=== PATIENT | male | born 1990 | race Caucasian/White ===

== ENCOUNTER → 2016-08-13 | Outpatient (CLI) | payer BC ==
[2016-08-13 08:25] LABS: Basophils # (A) 0.1 k/uL (0-0.2); Basophils % (A) 1 %; CH 31.6; CHCM 33.7; Eosinophils # (A) 0.4 k/uL (0-0.7); Eosinophils % (A) 6 %; HCT 45.9 % (39.0-53.0); HDW 2.61; HGB 14.9 gm/dL (13.0-17.5); Luc # (Auto) 0.12; Luc % (Auto) 2; Lymphocytes # (A) 1.8 k/uL (1.0-4.8); Lymphocytes % (A) 25 %; MCH 30.6 pg (25.0-35.0); MCHC 32.5 g/dL (31.0-37.0); MCV 94.4 fL (80.0-100.0); Mean Platelet Volume 6.6; Monocytes # (A) 0.3 k/uL (0-1.0); Monocytes % (A) 4 %; Neutrophils # (A) 4.7 k/uL (1.3-7.7); Neutrophils % (A) 64 %; RBC 4.86 m/uL (4.30-5.90); WBC 7.4 k/uL (3.8-10.6); WBC (Perox) 7.62
--- NOTE | 2016-08-13 08:39 | US ---
EXAMINATION TYPE: US liver DATE OF EXAM: 08/13/2016 7:42 AM COMPARISON: NONE CLINICAL HISTORY: 26-year-old male B18.2 HEP C. TECHNIQUE: Multiple sonographic images of the right upper quadrant are obtained. FINDINGS: Liver Length: 14.7 cm Gallbladder Wall: 0.3 cm CBD: 0.4 cm Right Kidney: 11.5 x 4.1 x 4.6 cm Pancreas: A small portion of the pancreatic tail is not well seen. Remainder is grossly unremarkable . Liver: There is homogeneous echotexture without focal lesions seen. Gallbladder: No abnormal gallbladder distention, wall thickening, pericholecystic fluid, or shadowin g calculi. Evidence for sonographic Travis's sign: No CBD: Within normal limits Right Kidney: No hydronephrosis. IMPRESSION: Overall homogeneous appearance to the liver. No sonographic evidence for hepatoma.
[2016-08-13 08:54] LABS: ALT 139 U/L (21-72); AST 51 U/L (17-59); Alkaline Phosphatase 37 U/L (38-126); Bilirubin, Delta 0.3 mg/dL (0.0-0.2); Total Bilirubin 0.4 mg/dL (0.2-1.3); Total Protein 7.7 g/dL (6.3-8.2)
[2016-08-13 09:21] LABS: Hepatitis B Surface Ag Index 0.05
[2016-08-13 09:26] LABS: Hepatitis B Core IgM Index 0.03
[2016-08-13 09:48] LABS: Hepatitis C Virus IgG Ab Reactive (Negative)
[2016-08-15 07:31] LABS: HIV-1/HIV-2 Ab Screen NONREAC (NON REAC)
[2016-08-17 11:52] LABS: HCV Qualitative Result DETECTED (Not detected)
== END | disposition home or self-care (01) ==
LOC: RADUSWWP 07:27
PROVIDERS: ATTEND Internal Medicine Gastroenterology
DX: B18.2 Chronic viral hepatitis C (principal)
CPT/HCPCS: 36415; 76705; 80074; 80076; 85025; 87389; 87522; 87902